=== PATIENT | female | born 1995 ===

== ENCOUNTER 2019-05-23 13:14 | Outpatient (REF) | payer BC, SELFPAY ==
[2019-05-23 21:14] LABS: HCT 38.9 % (36.0-46.0); HGB 12.1 g/dL (12.0-15.5); Mean Corp. HGB Concentration 31.1 g/dL (32.0-36.0); Mean Corpuscular Hemoglobin 27.2 pg (27.0-33.0); Mean Corpuscular Volume 87.4 fL (80-95); Mean Platelet Volume 10.7 fL (8.0-11.0); Platelet Count 363 x1000/uL (130-400); RBC 4.45 m/cumm (4.00-5.20); RBC Distribution Width 12.9 % (11.7-14.6); White Blood Cell Count 10.58 k/cumm (4.4-10.8)
[2019-05-23 21:57] LABS: ALT 17 U/L (14-59); AST 13 U/L (15-37); Albumin 4.3 g/dL (3.4-5.0); Alkaline Phosphatase 59 U/L (46-116); Anion Gap 12.1 mmol/L (3-11); BUN 6 mg/dL (7-18); Bilirubin, Total 0.3 mg/dL (0.2-1.0); CO2 26.9 mmol/L (21.0-32.0); CREATININE 0.84 mg/dL (0.55-1.02); Calcium 9.1 mg/dL (8.5-10.1); Calculated LDL 75 mg/dL; Chloride 103 mmol/L (98-107); Cholesterol 138 mg/dL (<200); Glucose 79 mg/dL (74-106); HDL Cholesterol 51 mg/dL (40-60); Sodium 142 mmol/L (136-145); TSH 0.99 uIU/mL (0.36-3.74); Total Protein 7.7 g/dL (6.4-8.2); Triglyceride 63 mg/dL (<150)
[2019-05-23 22:05] LABS: Lipase 45 U/L (73-393)
[2019-05-23 22:06] LABS: Hemoglobin A1C 5.5 % (4.5-6.2)
== END 2019-05-23 13:34 ==
LOC: NCHCN 13:14
PROVIDERS: Visit Provider Nurse Practitioner Family
DX: F41.9 Anxiety disorder, unspecified (principal); K29.70 Gastritis, unspecified, without bleeding; R10.9 Unspecified abdominal pain; R11.10 Vomiting, unspecified; F11.21 Opioid dependence, in remission; Z13.1 Encounter for screening for diabetes mellitus; Z13.220 Encounter for screening for lipoid disorders
CPT/HCPCS: 80053; 80061; 83690; 85027; 83036; 84443